=== PATIENT | female | born 1950 | race Caucasian/White ===

== ENCOUNTER 2018-07-15 11:35 | Day surgery (SDC) | payer OTHER ==
--- NOTE | 2018-06-30 11:24 | HP ---
DATE OF SURGERY: 07/15/2018 BRIEF HISTORY: This is a 68-year-old female with a history of having multiple lipomas. She had several excised in 2014. She now presents to the office with complaints of having discomfort on both posterior aspects of her arms. The ones on the left, causing more discomfort than the ones on the right and therefore she wished to have these addressed first. PAST MEDICAL HISTORY: No coronary disease, hypertension, or diabetes. PAST SURGICAL HISTORY: As mentioned above. MEDICATIONS: None. ALLERGIES: None. SOCIAL HISTORY: Patient does not smoke. She drinks socially. PHYSICAL EXAMINATION: Left Upper Extremity: The patient's left upper arm is examined from elbow to shoulder. On the posterior aspect, she has 3 discrete masses. One is noted directly in the midline posterior, the other is more off to the medial aspect of the arm and the 3rd is a bilobed lesion noted just proximal to the elbow. The one by the elbow is slightly more tender than the others. The elbow lesion is approximately a total of a centimeter in size; the other 2 are approximately 1.5 to 2 cm in size each. No overlying skin changes. IMPRESSION/PLAN: Soft tissue masses, left posterior arm. The patient has 3, possibly 4 lesions that are causing her discomfort. Will plan for excision under IV sedation and local anesthesia. The indications, alternatives, and complications of the excision have been discussed at length. Will obtain written consent the day of surgery. With regard to the other lesions in the right arm, they will addressed at a later time and date. Gilmar WAKEFIELD [id number] cc: Bryn Kramer MD MTDD
[2018-07-01 11:06] VITALS: BMI 22.2
[2018-07-15 12:04] VITALS: TEMP 98.4
[2018-07-15] MEDS ORDERED: MIDAZOLAM HCL 2 MG/2 ML SINGLE DOSE VIAL ONE ×2 (12:21→12:51)
[2018-07-15] MEDS ORDERED: LIDOCAINE 1%/EPI 1:100000 (20 ML MULTI DOSE VIAL) ONE (12:21)
[2018-07-15] MEDS ORDERED: PROPOFOL 20 ML ONE (12:21)
[2018-07-15] MEDS ORDERED: ceFAZolin SODIUM 1 GM VIAL ONE (12:41)
[2018-07-15] MEDS ORDERED: VERAPAMIL HCL 5 MG/2 ML VIAL IVPUSH ONE (12:50)
[2018-07-15] MEDS ORDERED: DEXAMETHASONE SOD PHOSPHATE 4 MG/1 ML VIAL ONE (12:57)
[2018-07-15] MEDS ORDERED: ONDANSETRON 4 MG/2 ML VIAL ONE (12:57)
[2018-07-15] MEDS ORDERED: ACETAMINOPHEN 325 MG TABLET (FP) PO PRN (13:28)
[2018-07-15] MEDS ORDERED: oxyCODONE HCL 5 MG TABLET PO PRN ×2 (13:28)
[2018-07-15] MEDS ORDERED: ONDANSETRON 4 MG/2 ML VIAL IVPUSH PRN (13:28)
[2018-07-15] MEDS ORDERED: LACTATED RINGERS SOLUTION 1,000 ML IV SCH (13:30)
[2018-07-15 14:05] VITALS: BP 136/72; PULSE 60
--- NOTE | 2018-07-16 11:31 | OP ---
DATE OF OPERATION: July 15, 2018 PREOPERATIVE DIAGNOSIS: Soft tissue mass of the left arm x3, suspect lipomas. POSTOPERATIVE DIAGNOSIS: Soft tissue mass of the left arm x3, suspect lipomas. PROCEDURE: Excision of soft tissue mass of the left arm x3 with a total of 6-cm active wound closure. SURGEON: Alonzo Garcia MD. CERTIFIED OPHTHALMIC TECHNICIAN: None. ANESTHESIA: Constantin Eduardo MD (MAC/1% lidocaine without epinephrine approximately for 10 mL. ESTIMATED BLOOD LOSS: Minimal. SPECIMEN: Soft tissue masses x3 (lipomas). DESCRIPTION OF OPERATIVE: This is a 68-year-old female who complains of having pain in the soft tissue mass of the left arm. She wished to have these removed. The patient was identified appropriately positioned on the operative table. After placement of IV sedation the left arm was prepped and draped in the usual soft tissues with ChloraPrep. Lidocaine 1% without epinephrine was used for anesthesia for all 3 masses. Approximately 10 mL was used. A 2-cm incision overlying each mass was made through the subcutaneous tissue. Each mass was sharply excised and the lipomas were excised intact and en bloc for all 3. Next, the dermis was reapproximated with interrupted inverted 3-0 chromic sutures and the skin was closed with 4-0 subcuticular Biosyn. This was done at all 3 incisions and the total length of the incision of the left arm was 6 cm. Dermabond was placed to the wound followed by 4 x 4s. The patient tolerated the procedure well. At the conclusion of the case, sponge corrects were correct. ATTESTATION: Brief operative note handwritten on the preprinted form. [facility] queried prior to giving narcotics. Gilmar WAKEFIELD [id number]
--- NOTE | 2018-07-17 17:15 | PATH ---
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 Rec. #: [id number] /Age/Gender: 1950 (Age: 67) / F Account: [id number] Location: [facility] Taken: 07/15/2018 Received: 07/15/2018 Reported: 07/17/2018 Physicians: Alonzo Garcia Specimen(s) Received A: SOFT TISSUE MASS LEFT ARM-MOST INFERIOR B: SOFT TISSUE MASS LEFT ARM-MIDDLE C: SOFT TISSUE MASS LEFT ARM-SUPERIOR Clinical History Excision soft tissue mass x3 left arm Final Diagnosis A. ARM, LEFT, MOST INFERIOR, SOFT TISSUE MASS, EXCISION: MATURE FIBROADIPOSE TISSUE CONSISTENT WITH LIPOMA. B. ARM, LEFT, MIDDLE, SOFT TISSUE MASS, EXCISION: MATURE FIBROADIPOSE TISSUE CONSISTENT WITH LIPOMA. C. ARM, LEFT, SUPERIOR, SOFT TISSUE MASS, EXCISION: MATURE FIBROADIPOSE TISSUE CONSISTENT WITH LIPOMA. Electronically Signed Yesenia Solorzano M.D. Gross Description A. Received in formalin labeled "soft tissue mass left arm inferior," is a 2.0 x 1.3 x 1.0 cm felipe-yellow, irregular portion of the yellow, lobulated adipose tissue. Sectioning reveals homogeneous yellow, smooth fat. No areas of hemorrhage or per cysts are identified. Dolphin Researcher sections are submitted in one cassette. B. Received in formalin labeled "soft tissue mass left arm middle," is a 3.1 x 2.0 x 1.1 cm portion of yellow, lobulated adipose tissue. Sectioning reveals homogeneous yellow, smooth fat. No areas of hemorrhage or necrosis are identified. Dolphin Researcher sections are submitted in one cassette. C. Received in formalin labeled "soft tissue mass left arm superior," is a 2.2 x 1.5 x 0.7 cm portion of yellow, lobulated adipose tissue. Sectioning reveals homogeneous yellow, smooth fat. No areas of hemorrhage or necrosis are identified. Dolphin Researcher sections are submitted in one cassette. 07/16/201807/16/2018
== END 2018-07-15 14:05 | disposition home or self-care (01) ==
LOC: FASU 11:35
PROVIDERS: ATTEND Surgery
PROC: 0JBF0ZZ Excision of Left Upper Arm Subcutaneous Tissue and Fascia, Open Approach (ICD-10-PCS; 2018-07-15)
PROC: 0JBF0ZZ Excision of Left Upper Arm Subcutaneous Tissue and Fascia, Open Approach (ICD-10-PCS; 2018-07-15)
PROC: 0JBF0ZZ Excision of Left Upper Arm Subcutaneous Tissue and Fascia, Open Approach (ICD-10-PCS; principal; 2018-07-15 12:55)
DX: D21.12 Benign neoplasm of connective and other soft tissue of left upper limb, including shoulder (principal)
CPT/HCPCS: 88304-TC

== ENCOUNTER 2019-04-13 10:10 | Day surgery (SDC) | payer OTHER ==
[2019-04-07 13:55] VITALS: BMI 22.4
[2019-04-13 10:40] VITALS: TEMP 98.3
[2019-04-13 12:50] VITALS: BP 101/57; PULSE 61
--- NOTE | 2019-04-14 17:29 | PATH ---
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 Rec. #: [id number] /Age/Gender: 1950 (Age: 68) / F Account: [id number] Location: [facility]ENDOSCOPY Taken: 04/13/2019 Received: 04/13/2019 Reported: 04/14/2019 Physicians: Vj Gasca D.O. Specimen(s) Received A: SIGMOID POLYP B: RECTAL SIGMOID POLYP C: RECTAL POLYP Clinical History Colorectal cancer screening Postoperative diagnosis: Colon polyps, diverticulosis Final Diagnosis A. SIGMOID POLYP, BIOPSY: COLONIC MUCOSA WITH FOCAL SURFACE HYPERPLASTIC CHANGE. B. RECTOSIGMOID POLYP, POLYPECTOMY: HYPERPLASTIC POLYP. C. RECTAL POLYP, POLYPECTOMY: HYPERPLASTIC POLYP. Electronically Signed Rylie Polanco M.D. Gross Description A. Received in formalin, labeled "biopsy sigmoid polyp" are 2 felipe, irregular portions of soft tissue measuring 0.1 and 0.2 cm. in greatest dimension. The specimens are submitted in toto in one cassette. B. Received in formalin, labeled "biopsy rectosigmoid polyp" are 3 felipe, irregular portions of soft tissue ranging from 0.2-0.3 cm. in greatest dimension. The specimens are submitted in toto in one cassette. C. Received in formalin, labeled "biopsy rectal polyp" is a felipe, irregular portion of soft tissue measuring 0.3 cm. in greatest dimension. The specimen is submitted in toto in one cassette. DL/04/13/2019 saudi04/13/2019
== END 2019-04-13 12:50 | disposition home or self-care (01) ==
LOC: JASU-ENDO 10:10
PROVIDERS: ATTEND Internal Medicine Gastroenterology
PROC: 0DBN8ZX Excision of Sigmoid Colon, Via Natural or Artificial Opening Endoscopic, Diagnostic (ICD-10-PCS; 2019-04-13)
PROC: 0DBP8ZX Excision of Rectum, Via Natural or Artificial Opening Endoscopic, Diagnostic (ICD-10-PCS; principal; 2019-04-13 10:45)
DX: Z12.11 Encounter for screening for malignant neoplasm of colon (principal); K57.30 Diverticulosis of large intestine without perforation or abscess without bleeding; K64.8 Other hemorrhoids; K62.1 Rectal polyp; D12.7 Benign neoplasm of rectosigmoid junction; D12.5 Benign neoplasm of sigmoid colon
CPT/HCPCS: 88305-TC

== ENCOUNTER 2020-01-31 09:15 | Emergency (ER) | payer OTHER ==
--- NOTE | 2020-01-31 09:25 | PDOC ---
History of Present Illness - General Chief Complaint: Back Pain Stated Complaint: SCIATICA, N/V Time Seen by Provider: 01/31/20 09:25 - History of Present Illness Initial Comments: 01/31/20 09:49 Pt presents to the ED complaining of the acute onset of atraumatic mid and lower back pain. Patient awoke with some pain in her sacral region, which became suddenly worse when she bent to pull on a pair of pants. She denies fever or urinary complaints, although she does complain of nausea and two episodes of vomiting. Patient has had some episodes of mild back pain in the past, but this is much more severe. Pain is made worse by twisting movements of the torso or movements of her legs. Complaining of "tingling all over", but denies arm or leg weakness, or bowel or bladder complaints. 01/31/20 10:46 Past History - Medical History Allergies/Adverse Reactions: Allergies Allergy/AdvReac Type Severity Reaction Status Date / Time No Known Drug Allergies Allergy Verified 07/01/18 11:00 Home Medications: Ambulatory Orders Cholecalciferol (Vitamin D3) [Vitamin D3] 1,000 unit PO DAILY 04/07/19 Ubidecarenone [Co Q-10] 100 mg PO DAILY 04/07/19 Diclofenac Sodium [Voltaren] 4 gm TP DAILY #100 gel..gram. 01/31/20 Lidocaine 5% Patch [Lidoderm -] 1 patch TP DAILY #30 patch 01/31/20 Anemia: No Asthma: No Cancer: No Cardiac Disorders: No CVA: No COPD: No CHF: No Dementia: No Diabetes: No GI Disorders: Yes (GERD, HIATAL HERNIA, SUBMUCOSAL GASTRIC NODULE FUNDUS, DIVE RTICULOSIS,) Disorders: No HTN: Yes (BORDERLINE) Hypercholesterolemia: No Liver Disease: No Seizures: No Thyroid Disease: No - Surgical History Abdominal Surgery: No Appendectomy: No Cardiac Surgery: No Cholecystectomy: No Lung Surgery: No Neurologic Surgery: No Orthopedic Surgery: Yes (LAVERNE HAMMER TOE SURGERY) - Psycho-Social/Smoking History Smoking Status: Yes Smoking History: Former smoker Have you smoked in the past 12 months: No Number of Cigarettes Smoked Daily: 0 If you are a former smoker, when did you quit?: 05/2009 Review of Systems - Review of Systems Able to Perform ROS?: Yes Is the patient limited Serbian proficient: No Constitutional: No: Symptoms Reported, See HPI, Chills, Diaphoresis, Fever, Loss of Appetite, Malaise, Night Sweats, Weakness, Weight Stable, Unintentional Wgt. Loss, Unexplained wgt Loss, Other HEENTM: No: Symptoms Reported, See HPI, Eye Pain, Blurred Vision, Tearing, Recent change in vision, Double Vision, Cataracts, Ear Pain, Ocular Prothesis, Ear Discharge, Nose Pain, Nose Congestion, Tinnitus, Nose Bleeding, Hearing Loss, Throat Pain, Throat Swelling, Mouth Pain, Dental Problems, Difficulty Swallowing, Mouth Swelling, Other Respiratory: No: Symptoms reported, See HPI, Cough, Orthopnea, Shortness of B reath, SOB with Exertion, SOB at Rest, Stridor, Wheezing, Productive cough, Hemoptysis, Other Cardiac (ROS): No: Symptoms Reported, See HPI, Chest Pain, Edema, Irregular Heart Rate, Lightheadedness, Palpitations, Syncope, Chest Tightness, Other ABD/GI: No: Symptoms Reported, See HPI, Abdominal Distended, Abd. Pain w/ defecation, Blood Streaked Bowels, Constipated, Diarrhea, Difficulty Swallowing, Nausea, Poor Appetite, Poor Fluid Intake, Rectal Bleeding, Vomiting, Indigestion, Abdominal cramping, Tarry Stools, Other : No: Symptoms Reported, See HPI, Burning, Dysuria, Discharge, Frequency, Flank Pain, Hematuria, Incontinence, Pain, Urgency, Testicular Mass, Testicular Swelling, Lesions, Testicular Pain, Other Musculoskeletal: Yes: Back Pain, Muscle Pain. No: Symptoms Reported, See HPI, G out, Joint Pain, Joint Swelling, Muscle Weakness, Neck Pain, Joint Stiffness, Other Integumentary: No: Symptoms Reported, See HPI, Bruising, Change in Color, Change in Hair/Nails, Dryness, Erythema, Flushing, Lesions, Lumps, Pallor, Pruritus, Rash, Sweating, Other Neurological: Yes: Tingling. No: Symptoms reported, See HPI, Headache, Numbness, Paresthesia, Pre-Existing Deficit, Seizure, Tremors, Weakness, Unsteady Gait, Ataxia, Dizziness, Other *Physical Exam - Physical Exam 01/31/20 11:04 Gen: alert, uncomfortable. HEENT: normocephalic, atraumatic CV: rrr no murmurs Pulm: CTA b/l Abdomen: soft, non tender, non distended ext: no deformity, edema or tenderness back: no point tenderness, step off or deformity. No CVA tenderness. + point tenderness in L lateral sacral area, not directly over the spine. Neuro: alert and oriented x 3. 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 intact light touch sensation in bilateral upper and lower extremities. ED Treatment Course - LABORATORY CBC & Chemistry Diagram: 01/31/20 09:40 01/31/20 09:40 Medical Decision Making - Medical Decision Making 01/31/20 11:11 Pt presents to the ED complaining of the acute onset of severe mid and lower back pain. No symptoms suggestive of AAA or nephrolithiasis, especially given that her pain seems to be centerd in her l buttock. No fever or spinal point tenderness to suggest epidural abscess. No neuro symptoms or findings to benjamin ggest cord compression. Pain improved with morphine and IV tylenol, but given the severity of her pain, will check CT of the spine to rule out compression fracture. 01/31/20 11:18 01/31/20 16:21 CT shows arthritis and hemangiomas that were seen on previous study, but no acute findings. Patient is now ambulatory. Will discharge home with instructions to return to the Ed for worsening symptoms. Discharge - Discharge Information Problems reviewed: Yes Clinical Impression/Diagnosis: Low back pain Qualifiers: Chronicity: acute Back pain laterality: left Sciatica presence: without sciatica Qualified Code(s): M54.5 - Low back pain Condition: Good Disposition: HOME - Admission No - Additional Discharge Information Prescriptions: Lidocaine 5% Patch [Lidoderm -] 1 patch TP DAILY #30 patch - Follow up/Referral Referrals: Bryn Kramer MD [Primary Care Provider] - - Patient Discharge Instructions Patient Printed Discharge Instructions: DI for Low Back Pain Additional Instructions: you came to the ED for back pain. We did blood work and a Cat scan of your back that didn't show anything emergent. You can take the lidocaine and the voltaren prescribed for pain. You should return to the ED for severe pain, pain with fever, weakness in your legs, problems controlling your bowels or your bladder. Call your doctor for follow up tomorrow. - Post Discharge Activity
[2020-01-31 09:31] VITALS: BP 132/83; BMI 22.4
[2020-01-31] MEDS ORDERED: ACETAMINOPHEN 1000 MG/100 ML VIAL (NON FORMULARY) IVPB ONE (09:32)
[2020-01-31] MEDS ORDERED: ACETAMINOPHEN INJECTION 100 ML IVPB ONE (09:35)
[2020-01-31] MEDS ORDERED: ONDANSETRON 4 MG/2 ML VIAL IVPUSH ONE (09:48)
[2020-01-31 09:51] LABS: BASO % 0.8 % (0-2.0); EOS % 5.9 % (0-4.5); HEMATOCRIT 45.7 % (32.4-45.2); HEMOGLOBIN 15.4 GM/dl (10.7-15.3); LYMPH % 30.6 % (8-40); MCH 32.9 pg (25.7-33.7); MCHC 33.6 g/dl (32.0-36.0); MEAN CELL VOLUME 97.9 fl (80-96); MEAN PLT VOLUME 7.5 fl (7.5-11.1); MONO % 8.6 % (3.8-10.2); NEUT % 54.1 % (42.8-82.8); PLATELET COUNT 289 K/MM3 (134-434); RBC 4.66 M/mm3 (3.60-5.2); RDW 13.9 % (11.6-15.6)
--- OUTSIDE RECORDS SUMMARY | 2020-01-31 09:58 | XMS ---
:1950 Author Organization [facility] Support Name Relationship Address Phone RE, RETIRED Unavailable Unavailable Unavailable RE Unavailable Unavailable Unavailable [facility] Unavailable [address] [phone] [place] [address] SANDEE FARMER [address] [place] [address] Re-disclosure Warning The records that you are about to access may contain information from federally- assisted alcohol or drug abuse programs. If such information is present, then the following federally mandated warning applies: This information has been disclosed to you from records protected by federal confidentiality rules (42 CFR part 2). The federal rules prohibit you from making any further disclosure of this information unless further disclosure is expressly permitted by the written consent of the person to whom it pertains or as otherwise permitted by 42 CFR part 2. A general authorization for the release of medical or other information is NOT sufficient for this purpose. The Federal rules restrict any use of the information to criminally investigate or prosecute any alcohol or drug abuse patient.The records that you are about to access may contain highly sensitive health information, the redisclosure of which is protected by Article 27-F of the [facility] Public Health law. If you continue you may haveaccess to information: Regarding HIV / AIDS; Provided by facilities licensed or operated by the [facility] Office of Mental Health; or Provided by the [facility] Office for People With Developmental Disabilities. If such information is present, then the following [facility] mandated warning applies: This information has been disclosed to you from confidential records which are protected by state law. State law prohibits you from making any further disclosure of this information without the specific written consent of the person to whom it pertains, or as otherwise permitted by law. Any unauthorized further disclosure in violation of state law may result in a fine or long-term sentence or both. A general authorization for the release of medical or other information is NOT sufficient authorization for further disclosure. Insurance Providers Payer name Policy type Policy ID Covered Covered alliance party's Policy P karthik / Coverage alliance party ID relationship to Lindsay Inf ormation type lindsay [facility] [id number] SP [id number] MEDICARE [id number] 6 [facility] [id number] 1 [id number] [place] [id number] PART [address] 6 [employer] [facility] [id number] SP [id number] MEDICARE [id number]
[2020-01-31] MEDS ORDERED: morphine CARPU-JECT 4 MG/1 ML DISP.SYRIN IVPUSH ONE (10:05)
[2020-01-31] MEDS ORDERED: morphine SULFATE 4 MG/ML VIAL ONE (10:07)
[2020-01-31] MEDS ORDERED: ONDANSETRON 4 MG/2 ML VIAL ONE (10:07)
[2020-01-31 10:10] LABS: ALBUMIN 4.3 g/dl (3.4-5.0); BILIRUBIN,TOTAL 1.2 mg/dl (0.2-1); CALCIUM 9.3 mg/dl (8.5-10); CREATININE 0.8 mg/dl (0.55-1.3); POTASSIUM 3.2 mmol/L (3.5-5.1)
[2020-01-31] MEDS ORDERED: LIDOCAINE 5% TOPICAL PATCH TP ONE (10:32)
[2020-01-31] MEDS ORDERED: LIDOCAINE 5% TOPICAL PATCH ONE (10:33)
[2020-01-31 10:41] VITALS: TEMP 98
[2020-01-31 14:22] VITALS: PULSE 76
[2020-01-31] MEDS ORDERED: KETOROLAC TROMETHAMINE 15 MG/ML VIAL IVPUSH ONE (15:13)
[2020-01-31] MEDS ORDERED: KETOROLAC TROMETHAMINE 15 MG/ML VIAL ONE (15:15)
[2020-01-31] MEDS ORDERED: LIDOCAINE PATCH REMOVAL MC SCH (22:00)
== END 2020-01-31 16:40 | disposition home or self-care (01) ==
LOC: FER 09:15
PROC: 3E033NZ Introduction of Analgesics, Hypnotics, Sedatives into Peripheral Vein, Percutaneous Approach (ICD-10-PCS; principal; 2020-01-31)
PROC: 3E033GC Introduction of Other Therapeutic Substance into Peripheral Vein, Percutaneous Approach (ICD-10-PCS; 2020-01-31)
DX: M54.5 Low back pain (principal)
CPT/HCPCS: 36415; 72128-TC; 72131-TC; 80053; 85025; 99285-25; J0131

== ENCOUNTER 2022-09-16 16:40 | Emergency (ER) | payer OTHER ==
[2022-09-16] MEDS ORDERED: ALBUTEROL SO4 2.5/IPRATROPIUM 0.5 INH SOL 3 ML VIAL.NEB. NEB ONE (17:00)
[2022-09-16] MEDS: ALBUTEROL SO4 2.5/IPRATROPIUM 0.5 INH SOL 3 ML VIAL.NEB. NEB SCH ×3 (17:05→17:35)
[2022-09-16 17:11] VITALS: BP 142/83; PULSE 77; RESP 18; TEMP 98.4; BMI 23.1
== END 2022-09-16 18:15 | disposition home or self-care (01) ==
LOC: FER 16:40
PROC: 3E0F7GC Introduction of Other Therapeutic Substance into Respiratory Tract, Via Natural or Artificial Opening (ICD-10-PCS; principal; 2022-09-16)
DX: R05.2 Subacute cough (principal); J20.9 Acute bronchitis, unspecified; Z20.822 Contact with and (suspected) exposure to COVID-19
CPT/HCPCS: 0241U-QW; 71046-TC-FY; 99284-25

== ENCOUNTER 2023-02-18 17:33 | Emergency (ER) | payer OTHER ==
[2023-02-18 17:58] VITALS: BMI 21.9
[2023-02-18] MEDS ORDERED: DEXAMETHASONE SOD PHOSPHATE 10 MG/1 ML VIAL IVPUSH ONE (18:38)
[2023-02-18] MEDS ORDERED: ALBUTEROL SO4 2.5/IPRATROPIUM 0.5 INH SOL 3 ML VIAL.NEB. NEB ONE ×2 (18:38→18:54)
[2023-02-18] MEDS ORDERED: DEXAMETHASONE SOD PHOSPHATE 10 MG/1 ML VIAL ONE (18:54)
[2023-02-18] MEDS ORDERED: ACETAMINOPHEN 1000 MG/100 ML BAG IVPB ONE (18:54)
[2023-02-18] MEDS ORDERED: SODIUM CHLORIDE 0.9% 1000 ML INFUS.BAG IV ONE (18:54)
[2023-02-18] MEDS ORDERED: ACETAMINOPHEN INJECTION 100 ML IVPB ONE (18:58)
[2023-02-18 19:09] LABS: HEMATOCRIT 43.1 % (32.4-45.2); HEMOGLOBIN 14.3 G/dL (10.7-15.3); MCHC 33.2 g/dl (32.0-36.0); MEAN CELL VOLUME 96.2 fl (80-96); MEAN PLT VOLUME 7.6 fl (7.5-11.1); RBC 4.48 10^6/uL (3.60-5.2); RDW 13.6 % (11.6-15.6); WHITE BLOOD COUNT 8.1 10^3/uL (4.0-10.8)
[2023-02-18 19:21] LABS: ALBUMIN 4.5 g/dl (3.4-5.0); BILIRUBIN,TOTAL 0.9 mg/dl (0.2-1); BLOOD UREA NITROGEN 11.8 mg/dl (7-18); CALCIUM 9.2 mg/dl (8.5-10.1); CREATININE 0.8 mg/dl (0.6-1.3); SGOT/AST 26.4 U/L (15-37); SGPT/ALT 22.3 U/L (7-52); TOT PROT 6.9 g/dl (6.4-8.2)
[2023-02-18 19:22] LABS: PLATELET ESTIMATE ADEQUATE
[2023-02-18 20:10] LABS: VENOUS BASE EXCESS 0.9 mmol/L (-2-2); VENOUS O2 SATURATION 60.9 % (70-80); VENOUS PCO2 42.3 mmHg (38-52); VENOUS PH 7.403 (7.310-7.410)
[2023-02-18 20:24] VITALS: BP 118/75; PULSE 69; RESP 16; TEMP 99
[2023-02-18 20:40] LABS: THROAT:GRP A STREP NOT DETECTED (NOTDETECTED)
[2023-02-18] MEDS ORDERED: AZITHROMYCIN 500 MG TABLET PO ONE (21:44)
[2023-02-18] MEDS ORDERED: AZITHROMYCIN 500 MG TABLET ONE (21:47)
== END 2023-02-18 22:05 | disposition home or self-care (01) ==
LOC: FER 17:33
PROC: 3E033NZ Introduction of Analgesics, Hypnotics, Sedatives into Peripheral Vein, Percutaneous Approach (ICD-10-PCS; principal; 2023-02-18)
PROC: 3E033GC Introduction of Other Therapeutic Substance into Peripheral Vein, Percutaneous Approach (ICD-10-PCS; 2023-02-18)
PROC: 3E0F7GC Introduction of Other Therapeutic Substance into Respiratory Tract, Via Natural or Artificial Opening (ICD-10-PCS; 2023-02-18)
DX: R05.9 Cough, unspecified (principal); R09.81 Nasal congestion; R50.9 Fever, unspecified; R07.89 Other chest pain; J45.41 Moderate persistent asthma with (acute) exacerbation; Z20.822 Contact with and (suspected) exposure to COVID-19
CPT/HCPCS: 0241U-QW; 36415; 71046-TC-FY; 80053; 82803; 85027; 87651; 93005; 99285-25; J1100

== ENCOUNTER 2024-01-05 18:41 | Emergency (ER) | payer OTHER ==
[2024-01-05 18:59] VITALS: BP 127/87; PULSE 71; RESP 18; TEMP 98.8; BMI 22.5
== END 2024-01-05 21:51 | disposition home or self-care (01) ==
LOC: FER 18:41
PROC: 2W3CX1Z Immobilization of Right Lower Arm using Splint (ICD-10-PCS; principal; 2024-01-05)
DX: S52.531A Colles' fracture of right radius, initial encounter for closed fracture (principal); W01.0XXA Fall on same level from slipping, tripping and stumbling without subsequent striking against object, initial encounter
CPT/HCPCS: 71101-TC-RT-FY; 73090-TC-RT-FY; 99283-25